=== PATIENT | female | born 1990 | race African-American/Black ===

== ENCOUNTER 2017-10-22 19:42 | Emergency (ER) | payer MEDICAID ==
[~2017-10-22] VITALS: Ht 170.2 cm; Wt 93.0 kg
[2017-10-22 20:03] VITALS: BP 150/96
== END 2017-10-23 01:31 | disposition home or self-care (01) ==
LOC: ER 19:42
DX: M54.2 Cervicalgia (principal); M62.838 Other muscle spasm
CPT/HCPCS: 72125

== ENCOUNTER 2019-06-24 08:40 | Emergency (ER) | payer MEDICAID ==
[~2019-06-24] VITALS: Ht 167.6 cm; Wt 149.7 kg
[2019-06-24 09:12] LABS: Hematocrit 38.5 % (36.0-46.0); Monocytes # (auto) 0.5 uL; Neutrophils % (auto) 68.6 % (37.0-80.0)
[2019-06-24 09:14] LABS: Basophils # (auto) 0.1 uL; Basophils % (auto) 0.6 % (0.0-2.0); Eosinophils # (auto) 0 uL; Eosinophils % (auto) 0.4 % (0.0-7.0); Hemoglobin 13.2 g/dL (12.2-16.2); Lymphocytes # (auto) 2.5 uL; Lymphocytes % (auto) 25.6 % (10.0-50.0); Mean Corpuscular Hemoglobin 26.9 pg (28.0-32.0); Mean Corpuscular Hgb Conc. 34.2 g/dL (32.0-36.0); Mean Corpuscular Volume 78.8 fL (80.0-100.0); Monocytes % (auto) 4.8 % (0.0-12.0); Neutrophils # (auto) 6.8 uL; Nucleated Red Blood Cells % 0.1 %; Platelet Count (auto) 213 10^3/uL (140-450); Red Blood Cells 4.89 10^6/uL (4.0-5.20); Red Cell Distribution Width 16.1 % (11.8-14.3); White Blood Cell 9.9 10^3/uL (4.4-10.8)
[2019-06-24 10:43] VITALS: BP 136/86
== END 2019-06-24 11:00 | disposition home or self-care (01) ==
LOC: ER 08:40
DX: O20.0 Threatened abortion (principal); Z3A.01 Less than 8 weeks gestation of pregnancy
CPT/HCPCS: 36415; 76801; 84702; 85025